=== PATIENT | female | born 1965 | race Caucasian/White ===

== ENCOUNTER 2017-10-02 14:07 | Emergency (ER) | payer MEDICARE, OTHER ==
[~2017-10-02] VITALS: Ht 167.6 cm; Wt 109.4 kg
[2017-10-02 14:17] VITALS: BP 159/95
--- NOTE | 2017-10-02 14:25 | NUR ---
URINE CUP PROVIDED TO PT FOR SAMPLE; APPLE JUICE PROVIDED TO PATIENT; PT AWAKE, ALERT, APPROPRIATE WITH EVEN AND STEADY GAIT AT THIS TIME; PT TO LOBBY AWAITING OPEN BED. Addendum: 10/02/17 at 1426 by [employer] PAULETTE FAJARDO NOTIFIED OF PT'S BLOOD SUGAR.
--- NOTE | 2017-10-02 15:45 | NUR ---
52f bib family with c/o 6/10 "pressure" RUQ/MID abd pain radiating to right flank area. Pt also reports of n/v/d. Pt reports of one episode of emesis today. Pt deneis any fevers or urinary complaints. Pt is aox4 with steady gait. RR are even and unlabored. Skin warm/pink/dry. No acute distress noted. Awaiting er md morris. VSS. Will continue to monitor.
[2017-10-02 15:47] LABS: APPEARANCE,URINE CLEAR (CLEAR); BILIRUBIN,URINE NEGATIVE (NEGATIVE); BLOOD, URINE NEGATIVE (NEGATIVE); COLOR,URINE YELLOW (YELLOW); LEUKOCYTE ESTERASE ,URINE 2+ (NEGATIVE); NITRITE, URINE NEGATIVE (NEGATIVE); PH,URINE 6.5 (5.0-9.0); UGLUCOSE NEGATIVE (NEGATIVE)
[2017-10-02 15:56] LABS: ALBUMIN 3.8 g/dL (3.4-5.0); CARBON DIOXIDE 31.3 mmol/L (21-32); CREATININE 0.7 mg/dL (0.6-1.3); POTASSIUM 4.3 mmol/L (3.5-5.1); TOTAL BILIRUBIN 0.6 mg/dL (0.0-1.0)
--- NOTE | 2017-10-02 16:15 | NUR ---
awaiting ct; iv saline lock established and consent signed; ct notified and aware
[2017-10-02 16:21] LABS: RBC,URINE NONE SEEN /HPF (0-5)
--- NOTE | 2017-10-02 16:23 | NUR ---
PT TAKEN TO CT VIA W/C ACCOMPANIED BY POURED CONCRETE WALL TECHNICIAN.
[2017-10-02 16:28] LABS: BASOPHILS # (AUTO) 0.2 K/uL (0.00-0.22); BASOPHILS % (AUTO) 2.3 % (0.0-2.0); EOSINOPHILS # (AUTO) 0.1 K/uL (0-0.4); EOSINOPHILS % (AUTO) 1.3 % (0.0-4.0); HEMATOCRIT 37.4 % (36-48); HEMOGLOBIN 12.4 g/dL (12.0-16.0); LYMPHOCYTES % (AUTO) 13.7 % (20.5-51.1); MEAN CORPUSCULAR HEMOGLOBIN 29 pg (27-31); MEAN CORPUSCULAR HGB CONC 33 g/dL (33-37); MEAN CORPUSCULAR VOLUME 89 fL (80-94); MONOCYTES # (AUTO) 0.5 K/uL (0.8-1.0); NEUTROPHILS # (AUTO) 5.6 K/uL (1.8-7.7); NEUTROPHILS % (AUTO) 75.7 % (42.2-75.2); PLATELET COUNT (AUTO) 230 K/uL (140-450); RED BLOOD CELL COUNT(AUTO) 4.23 MIL/uL (4.20-5.40); WHITE BLOOD COUNT (AUTO) 7.4 K/uL (4.8-10.8)
--- NOTE | 2017-10-02 16:45 | NUR ---
pt returned from ct via w/c accompanied by office technology instructor without incident.
[2017-10-02 19:01] VITALS: BP 152/84
--- NOTE | 2017-10-02 19:01 | NUR ---
Patient discharged with v/s stable. Written and verbal after care instructions given and explained. Patient verbalized understanding. Ambulatory with steady gait. All questions addressed prior to discharge. Advised to follow up with PMD.
== END 2017-10-02 19:01 | disposition home or self-care (01) ==
LOC: MED 14:07
DX: K80.50 Calculus of bile duct without cholangitis or cholecystitis without obstruction (principal); E11.9 Type 2 diabetes mellitus without complications; I10 Essential (primary) hypertension; Z85.038 Personal history of other malignant neoplasm of large intestine; Z88.8 Allergy status to other drugs, medicaments and biological substances; Z98.84 Bariatric surgery status
CPT/HCPCS: 36415; 71045; 74177; 80053; 81001; 81025; 82948; 83605; 83690; 83735; 84100; 84484; 85025; 87086; 93005; 99285; Q0092; Q9967